=== PATIENT | male | born 1970 | race Asian ===

== ENCOUNTER 2017-01-22 19:27 | Inpatient (IN) | payer BC ==
[~2017-01-22] VITALS: Ht 177.8 cm; Wt 84.2 kg
[~2017-01-22 19:27] MED LIST: ACET325T33 PO; CLON-379 PO; CYCL-319 PO; IBUP-1542 PO; PRED20TA PO
[2017-01-22] MEDS ORDERED: ONDANSETRON 4 MG INJ IV STA (20:14)
[2017-01-22] MEDS ORDERED: ASPIRIN 325 MG TAB PO STA (20:14)
[2017-01-22] MEDS ORDERED: NITROGLYCERIN 2% 1 GM OINT PKT TD STA (20:14)
[2017-01-22] MEDS ORDERED: morphine 4 MG/ML VIAL IV STA (20:14)
[2017-01-22 20:32] LABS: ADD SCAN DIFF NO
[2017-01-22 20:34] LABS: BASOPHILS % 0.7 % (0.0-2.0); EOSINOPHILS # 0.5 10^3/ul (0.0-0.5); EOSINOPHILS % 8.3 % (0.0-7.0); HEMATOCRIT 42.4 % (42.0-52.0); HEMOGLOBIN 13.9 g/dl (14.0-18.0); LYMPHOCYTES # 3.1 10^3/ul (0.8-2.9); LYMPHOCYTES % 51.6 % (15.0-51.0); MEAN CORPUSCULAR HEMOGLOBIN 23.6 pg (29.0-33.0); MEAN CORPUSCULAR HGB CONC 32.8 g/dl (32.0-37.0); MEAN CORPUSCULAR VOLUME 71.9 fl (82.0-101.0); MEAN PLATELET VOLUME 9.7 fl (7.4-10.4); MONOCYTE # 0.4 10^3/ul (0.3-0.9); NEUTROPHIL # 1.9 10^3/ul (1.6-7.5); NEUTROPHILS % 32.2 % (39.0-77.0); PLATELET COUNT 279 10^3/UL (140-415); RED CELL DISTRIBUTION WIDTH 17.3 % (11.5-14.5)
[2017-01-22 20:50] LABS: INR 0.89; PT RATIO 0.9
[2017-01-22 20:51] LABS: ANION GAP 13 (8-16); BLOOD UREA NITROGEN 10 mg/dl (7-20); CALCIUM 8.6 mg/dl (8.4-10.2); CARBON DIOXIDE 27 mmol/L (21-31); CHLORIDE 106 mmol/L (97-110); CREATININE 0.96 mg/dl (0.61-1.24); GLUCOSE 91 mg/dl (70-220); PARTIAL THROMBOPLASTIN TIME 28.5 Sec (25.0-35.0); POTASSIUM 3.6 mmol/L (3.5-5.1); SODIUM 142 mmol/L (135-144)
[2017-01-22 21:05] LABS: TROPONIN-I < 0.012 ng/ml (0.00-0.12)
--- NOTE | 2017-01-22 21:45 | ERA ---
ER Documentation Chief Complaint Date/Time DATE: 01/22/17 TIME: 21:43 Chief Complaint GRADUAL CP DESCRIBED PRESSURE RADIATING TO LEFT NECK AND ARM. HPI 47-year-old male with prior history of myocardial bridge over cardiac vessel who presents to the emergency room with chest pain. He describes gradual onset of chest pain that is pressure-like radiating to his jaw that is now 5 out of 10. No pleuritic pain, no back pain, no fevers chills or cough. ROS All systems reviewed and are negative except as per history of present illness. Medications Home Meds Active Scripts Ibuprofen* (Motrin*) 600 Mg Tab, 600 MG PO Q6, #20 TAB Prov:BILL CASILLAS PA-C 02/14/16 Prednisone* (Prednisone*) 20 Mg Tab, 40 MG PO DAILY for 4 Days, TAB Prov:BILL CASILLAS PA-C 02/14/16 Cyclobenzaprine Hcl* (Cyclobenzaprine Hcl*) 10 Mg Tablet, 10 MG PO TID, #15 TAB Prov:EWELINA BONDS PA-C 02/12/16 Acetaminophen* (Tylenol*) 325 Mg Tablet, 1 TAB PO Q6 Y for PAIN AND OR ELEVATED TEMP, #20 TAB Prov:EWELINA BONDS PA-C 02/12/16 Clonidine Hcl* (Clonidine Hcl*) 0.1 Mg Tab, 0.1 MG PO TID, #30 Prov:DARRON HERNANDEZ 02/03/15 Allergies Allergies: Coded Allergies: No Known Drug Allergy (Verified Allergy, Mild, 02/03/15) PMhx/Soc History of Surgery: Yes (LEFT ARM AND KNEE SX.) Anesthesia Reaction: No Hx Neurological Disorder: No Hx Respiratory Disorders: Yes (BRONCHITIS) Hx Cardiac Disorders: Yes (HTN ) Hx Psychiatric Problems: No Hx Miscellaneous Medical Probl: Yes (high cholesterol) Hx Alcohol Use: No Hx Substance Use: No Hx Tobacco Use: No Smoking Status: Never smoker FmHx Family History: No diabetes Physical Exam Vitals Vital Signs Date Time Temp Pulse Resp B/P Pulse Ox O2 Delivery O2 Flow Rate FiO2 01/22/17 21:26 70 21 130/90 100 Room Air 01/22/17 20:20 85 16 147/93 100 Room Air 01/22/17 19:36 97.1 90 18 166/81 99 Physical Exam General: Well developed, well nourished, no acute distress Head: Normocephalic, atraumatic. Eyes: Pupils equally reactive, EOM intact ENT: Moist mucous membranes Neck: Supple, no lymphadenopathy Respiratory: Lungs clear bilaterally, no distress Cardiovascular: RRR, no murmurs, rubs, or gallops Abdominal: Soft, non-tender, non-distended, no peritoneal signs : Deferred MSK: No edema, no unilateral swelling, 5/5 strength Neurologic: Alert and oriented, moving all extremities, normal speech, no focal weakness, no cerebellar signs Skin: No rash Psych: Normal mood Result Diagram: 01/22/17201901/22/172019 Results 24 hrs Laboratory Tests Test 01/22/17 20:20 White Blood Count 6.010^3/ul Red Blood Count 5.9010^6/ul Hemoglobin 13.9g/dl Hematocrit 42.4% Mean Corpuscular Volume 71.9fl Mean Corpuscular Hemoglobin 23.6pg Mean Corpuscular Hemoglobin Concent 32.8g/dl Red Cell Distribution Width 17.3% Platelet Count 46356^3/UL Mean Platelet Volume 9.7fl Neutrophils % 32.2% Lymphocytes % 51.6% Monocytes % 7.0% Eosinophils % 8.3% Basophils % 0.7% Nucleated Red Blood Cells % 0.0/100WBC Neutrophils # 1.910^3/ul Lymphocytes # 3.110^3/ul Monocytes # 0.410^3/ul Eosinophils # 0.510^3/ul Basophils # 0.010^3/ul Nucleated Red Blood Cells # 0.010^3/ul Prothrombin Time 12.0Sec Prothrombin Time Ratio 0.9 INR International Normalized Ratio 0.89 Activated Partial Thromboplast Time 28.5Sec Sodium Level 142mmol/L Potassium Level 3.6mmol/L Chloride Level 106mmol/L Carbon Dioxide Level 27mmol/L Anion Gap 13 Blood Urea Nitrogen 10mg/dl Creatinine 0.96mg/dl Glucose Level 91mg/dl Calcium Level 8.6mg/dl Troponin I < 0.012ng/ml Current Medications Medications (Trade) Dose Ordered Sig/Gamal Route PRN Reason Start Time Stop Time Status Last Admin Dose Admin Aspirin (Aspirin) 325 mg ONCE STAT PO 01/22/17 20:14 01/22/17 20:15 DC 01/22/17 20:23 Nitroglycerin (Nitroglycerin 2% Oint) 1 inch ONCE STAT TD 01/22/17 20:14 01/22/17 20:15 DC 01/22/17 20:24 Morphine Sulfate (morphine) 4 mg ONCE STAT IV 01/22/17 20:14 01/22/17 20:15 DC 01/22/17 20:24 Ondansetron HCl (Zofran Inj) 4 mg ONCE STAT IV 01/22/17 20:14 01/22/17 20:15 DC 01/22/17 20:23 Procedures/MDM EKG, MONITORS, & DIAGNOSTIC IMAGING: EKG: I reviewed and interpreted a 12-lead EKG. Rhythm: Normal sinus rhythm Ectopy: None Intervals: No abnormalities ST segments: No elevations or depressions T waves: No contiguous inversions Repeat EKG: EKG: I reviewed and interpreted a 12-lead EKG. Rhythm: Normal sinus rhythm Ectopy: None Intervals: No abnormalities ST segments: No elevations or depressions T waves: No contiguous inversions Chest x-ray: I reviewed and interpreted a 1 view of the chest Mediastinum: No enlargement Cardiac silhouette: No cardiomegaly Airspace: Clear lung moyer bilaterally without evidence of pneumothorax Bones: No evidence of fracture LAB INTERPRETATION: Negative troponin MEDICAL DECISION MAKING: The patient's history, physical exam and clinical presentation is concerning for possible cardiogenic etiology and acute coronary syndrome. Based on the patient's clinical exam and history and risk factors, I have a much lower clinical concern for pulmonary embolism, acute aortic dissection, pneumothorax, pneumonia, cardiac tamponade HEART Score: 3 MACE Rate: 1.7% Shared Decision Making: We had a conversation regarding risk stratification, MACE rate, and the risks, benefits, alternatives of disposition planning options. Disposition planning: Given the patient's structural abnormality I would be concerned for possible cardiac etiology therefore inpatient hospitalization is recommended ER COURSE: Aspirin, nitro, morphine provided. Pain improved. 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 He does not exhibit any migratory pain that would be concerning for dissection. The patient will benefit from inpatient hospitalization. Pain improved currently. I kept the patient and/or family informed of laboratory and diagnostic imaging results throughout the emergency room course. DISPOSITION PLAN: Telemetry admission to rule out acute coronary syndrome CONSULTATION: Accepting care team and consultations: I discussed the current laboratory data, diagnostic imaging and emergency care provided. Admitting team: Dr. Villela Admitting team indication: Insurance directed Departure Diagnosis: Primary Impression: Chest pain Qualified Code: R07.9 - Chest pain, unspecified type Condition: CONNOR Eastman MD Jan 22, 2017 21:45
[2017-01-22] MEDS ORDERED: ONDANSETRON 4 MG INJ IV PRN (22:00)
[2017-01-22] MEDS ORDERED: ACETAMINOPHEN 325 MG TAB PO PRN (22:00)
[2017-01-22 22:15] VITALS: TEMP 97.6
[2017-01-22 22:30] VITALS: BP 140/84; PULSE 67; RESP 18; Ht 177.8 cm; Wt 84.2 kg
[2017-01-22] MEDS ORDERED: ZOLPIDEM 5 MG TAB PO PRN (22:30)
[2017-01-22] MEDS ORDERED: LORAZEPAM 0.5 MG TAB PO PRN (22:30)
[2017-01-22] MEDS ORDERED: NITROGLYCERIN (SL) 0.4 MG TAB SL PRN (22:30)
--- NOTE | 2017-01-22 23:10 | RADRPT ---
PROCEDURE: Chest x-ray CLINICAL INDICATION: Chest pain TECHNIQUE: Chest single view COMPARISON: 02/20/2015 FINDINGS: The heart is normal in size. The pulmonary vessels are normal in caliber. The lungs are clear. Th e costophrenic angles are sharp. The visualized bony thorax is unremarkable. IMPRESSION: No acute cardiopulmonary disease. RPTAT: HH .Wing Moreno MD, Date Time Electronically viewed and signed by .Wing Moreno MD, MD on 01/22/2017 23:10 .W/
[2017-01-22 23:53] VITALS: BP 140/84; RESP 19
[2017-01-23] VITALS (12 sets, daily range): BP systolic 105–131; BP diastolic 51–77; PULSE 67–97; RESP 19–20
[2017-01-23 02:53] LABS: CREATINE KINASE 165 IU/L (23-200)
[2017-01-23 03:10] LABS: CK-MB 1.46 ng/ml (0.0-2.4); TROPONIN-I < 0.012 ng/ml (0.00-0.12)
[2017-01-23 06:57] LABS: ADD SCAN DIFF NO
[2017-01-23 07:05] LABS: BASOPHILS % 0.5 % (0.0-2.0); EOSINOPHILS # 0.5 10^3/ul (0.0-0.5); EOSINOPHILS % 8.3 % (0.0-7.0); HEMATOCRIT 39.3 % (42.0-52.0); HEMOGLOBIN 12.6 g/dl (14.0-18.0); LYMPHOCYTES # 2.4 10^3/ul (0.8-2.9); LYMPHOCYTES % 41.7 % (15.0-51.0); MEAN CORPUSCULAR HEMOGLOBIN 23.1 pg (29.0-33.0); MEAN CORPUSCULAR HGB CONC 32.1 g/dl (32.0-37.0); MEAN CORPUSCULAR VOLUME 72.1 fl (82.0-101.0); MEAN PLATELET VOLUME 9.8 fl (7.4-10.4); MONOCYTE # 0.5 10^3/ul (0.3-0.9); MONOCYTES % 8.5 % (0.0-11.0); NEUTROPHIL # 2.3 10^3/ul (1.6-7.5); NEUTROPHILS % 40.8 % (39.0-77.0); PLATELET COUNT 253 10^3/UL (140-415); RED BLOOD COUNT 5.45 10^6/ul (4.70-6.10); RED CELL DISTRIBUTION WIDTH 17.7 % (11.5-14.5); WHITE BLOOD COUNT 5.6 10^3/ul (4.8-10.8)
[2017-01-23 07:25] LABS: ALANINE AMINOTRANSFERASE 46 IU/L (13-69); ALBUMIN 3.8 g/dl (3.3-4.9); ALBUMIN/GLOBULIN RATIO 1.58; ALKALINE PHOSPHATASE 66 IU/L (42-121); ANION GAP 11 (8-16); ASPARTATE AMINO TRANSFERASE 26 IU/L (15-46); BILIRUBIN,INDIRECT 0.3 mg/dl (0-1.1); BILIRUBIN,TOTAL 0.3 mg/dl (0.2-1.3); BLOOD UREA NITROGEN 13 mg/dl (7-20); CALCIUM 8.6 mg/dl (8.4-10.2); CARBON DIOXIDE 25 mmol/L (21-31); CHLORIDE 109 mmol/L (97-110); CHOL/HDL RATIO 7.8 RATIO; CHOLESTEROL 188 mg/dl (100-200); CREATININE 1.03 mg/dl (0.61-1.24); GLUCOSE 92 mg/dl (70-220); HDL CHOLESTEROL 24 mg/dl (27-67); MAGNESIUM 2.1 mg/dl (1.7-2.5); POTASSIUM 3.8 mmol/L (3.5-5.1); SODIUM 141 mmol/L (135-144); TOTAL PROTEIN 6.2 g/dl (6.1-8.1); TRIGLYCERIDES 443 mg/dl (0-149)
[2017-01-23 07:34] LABS: TROPONIN-I < 0.012 ng/ml (0.00-0.12)
[2017-01-23] MEDS: ASPIRIN 81 MG TAB PO SCH (08:32)
[2017-01-23] MEDS: ENOXAPARIN 40 MG/0.4 ML SYG SC SCH (10:16)
[2017-01-23 10:38] LABS: CREATINE KINASE 143 IU/L (23-200)
[2017-01-23 10:59] LABS: CK-MB 1.17 ng/ml (0.0-2.4); TROPONIN-I < 0.012 ng/ml (0.00-0.12)
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
--- NOTE | 2017-01-23 13:23 | HP ---
DATE OF ADMISSION: 01/22/2017 ADDENDUM EKG was reviewed, which shows mild ST elevation in II, III, aVF and lateral leads. First EKG done o n 01/22, showed nonspecific ST-T wave changes; however, the EKG from the 5th shows ST elevation in I I, III and aVF along with the lateral leads. PLAN: Will discuss the findings with Dr. Kennedy and order an echocardiogram. Dictated By: RO HICKEY MD, SR/KATIE Conf#: [id number] DID#: [id number]
[2017-01-23] MEDS: REGADENOSON 0.4 MG/5 ML SYG ONE ×2 (13:51→14:00)
--- NOTE | 2017-01-23 14:19 | RADRPT ---
Echocardiogram Report Patient Name: MIK CARRANZA Gender: Male Date: 1970 Study Date: 23-Jan-2017 National Business Director: Ghazala Roldan [facility] Location: 503 Ref. Physician: RO HICKEY Quality: Good Procedures: Transthoracic echocardiogram with complete 2D, M-Mode, and doppler examination. Indications: Atypical Chest Pain, EKG changes of ischemia. 2D/M Mode Doppler Measurement Value Normal Ranges Measurement Value Normal Ranges LVIDd 2D 5.0 3.5 - 5.6 cm AV Peak Oniel 1.3 m/sec LVIDs 2D 3.1 2.1 - 4.1 cm AV Peak PG 7.0 mmHg FS 2D 37.6 % LVOT Peak Oniel 1.3 m/sec LVPWd 2D 0.8 0.6 - 1.1 cm LVOT Peak PG 7.0 mmHg IVSd 2D 0.8 0.6 - 1.1 cm MV E Peak Oniel 0.8 m/sec IVS/LVPW 2D 0.9 MV A Peak Oniel 0.6 m/sec AoR Diam 2D 3.1 2.0 - 3.7 cm MV E/A 1.3 LA/Ao 2D 1 0 - 1 MV Decel Time 162 msec EDV 2D 127.0 cm3 MV E/A 1.3 ESV 2D 31.0 cm3 TR Peak Oniel 2.0 m/sec LA Dimen 2D 3.3 2.3 - 4.0 cm TR Peak PG 17.0 mmHg RVSP 20.0 mmHg Findings Left Ventricle: Normal left ventricular systolic function. Normal left ventricular cavity size. Normal left ventricular wall thickness. Ejection fraction is visually estimated at 60 %. Right Ventricle: Normal right ventricular size. Normal right ventricular systolic function. Left Atrium: The left atrium is normal in size. Right Atrium: The right atrium is normal in size. Mitral Valve: Normal appearance and function of the mitral valve with trace physiologic regurgitation. Aortic Valve: Normal appearance of the aortic valve. No significant aortic stenosis or insufficiency. Tricuspid Valve: Normal appearance of the tricuspid valve. Estimated peak PA systolic pressure 20 mmHg. There is trace tricuspid regurgitation. Pulmonic Valve: Normal pulmonic valve appearance. Pericardium: Normal pericardium with no significant pericardial effusion. Aorta: Normal aortic root. IVC: Normal size and normal respiratory collapse consistent with normal right atrial pressure. Conclusions 1.Normal left ventricular systolic function. Normal left ventricular cavity size. Normal left ventricular wall thickness. Ejection fraction is visually estimated at 60 %. 2.Normal appearance and function of the mitral valve with trace physiologic regurgitation. 3.Normal appearance of the tricuspid valve. Estimated peak PA systolic pressure 20 mmHg. There is trace tricuspid regurgitation. Electronically Signed By: Paul Kennedy 23-Jan-2017 14:19:36 -0700 Patient Name: MIK CARRANZA Study Date: 23-Jan-2017 [id number]
--- NOTE | 2017-01-23 14:33 | CONS ---
DATE OF ADMISSION: 01/22/2017 DATE OF CONSULTATION: 01/23/2017 REASON FOR CONSULTATION: Chest pain, assess for acute coronary syndrome. REQUESTING PHYSICIAN: Dr. Hickey. HISTORY OF PRESENT ILLNESS: Mr. Washington is a 47-year-old male with a history of diet-controlled dy slipidemia and labile hypertension. not currently on medications, who initially presented with compl aints of substernal chest pain. Patient states that he was at work and began to have chest pain on the left side of his chest radiating up the left side of his chest and neck, lasting without stoppin g for about 2 hours, described as a stabbing sensation with associated pressure-like component at re st. The patient subsequently presented to the emergency department where upon arrival, temperature 97.1, blood pressure 166/81, pulse 90, respiratory rate 18, saturating 99%. The patient's labs reve aled a white blood cell count of 6.0, hemoglobin 13.9, platelet count 279. Sodium of 142, potassium 3.6, creatinine 0.9, BUN 10. Troponin negative. LDL 75, HDL 24. INR 0.89. The patient underwent a chest x-ray revealing no acute cardiopulmonary abnormalities. The patient's electrocardiogram re vealed normal sinus rhythm, rate of 74, normal axis, normal intervals with nonspecific ST and T-wave abnormalities. Patient subsequently admitted to the floor and since admit to the floor, has had a total of 3 negative troponins, ruling out acute myocardial infarction. LDL 75, HDL 24. The patient denies ongoing chest pain at this time. PAST MEDICAL HISTORY: As above in HPI. MEDICATIONS CURRENTLY IN HOSPITAL: 1. Lipitor 20 mg at bedtime. 2. ____ 1 gram b.i.d. 3. Lovenox 1 subcu daily. 4. Aspirin 81 mg daily. 5. Ativan 0.5 mg q.4 p.r.n. 6. Ambien p.r.n. 7. Sublingual nitroglycerin p.r.n. ALLERGIES: NO KNOWN DRUG ALLERGIES. SOCIAL HISTORY: No tobacco, ETOH or illicit drug use. FAMILY HISTORY: Negative for sudden cardiac or early CAD. REVIEW OF SYSTEMS: As above in HPI. CONSTITUTIONAL: No fevers, chills. PULMONARY: No current shortness of breath. CARDIOVASCULAR: Intermittent chest pain. GASTROINTESTINAL: No vomiting. GENITOURINARY: No hematuria. MUSCULOSKELETAL: Degenerative joint disease. PSYCHIATRIC: The patient denies depression. NEUROLOGIC: No documented history of CVA. PHYSICAL EXAMINATION VITAL SIGNS: Temperature of 98.2, blood pressure 108/65, pulse 68, respiratory rate 20, saturating 98%. GENERAL: The patient is alert, awake, in no acute distress. NECK: JVP approximately 8 to 9 cm water. CHEST: Fair air movement throughout. HEART: Regular rate and rhythm. Normal S1, S2, I/ systolic murmur, nondisplaced PMI. ABDOMEN: Positive bowel sounds, soft. EXTREMITIES: No pitting edema, 1+ pulses bilaterally, posterior tibial. LABORATORY DATA: As above in [facility] with most recently from today, sodium 141, potassium 3.8, creatini ne 1.0, BUN 13, LDL 75, HDL 24. Troponin negative x3. White blood cell count 5.6, hemoglobin 12.6, platelet count of 253. IMAGING STUDIES: As above in HPI. No further imaging studies for my review at this time. ECG: As above in HPI with repeat EKG from today revealing normal sinus rhythm, rate of 63, normal a xis, borderline ____, nonspecific ST-T abnormalities, no significant change. IMPRESSION: 1. Chest pain, assess for acute coronary syndrome with negative troponins x3 at this time. 2. Dyslipidemia. 3. Abnormal electrocardiogram, assess for acute coronary syndrome. 4. Anemia, mild. RECOMMENDATIONS: 1. At this time, would maintain the patient on telemetry monitoring to follow rhythm and rate contr ol closely. 2. Continue the patient's aspirin for prophylaxis against cardiovascular events and continue p.r.n. sublingual nitroglycerin for recurrent episodes of chest pain. Note is to continue patient's fish oil and statin at this time and follow up lipid studies including HDL. 3. Will attempt to schedule stress test for patient today in order to assess for the possibility of ischemia lending to the patient's symptoms of chest pain and subsequent admit to the hospital. Thank you for allowing me to take part in the care of this patient. I will continue to follow very closely with you with further recommendations to be made as the patient progresses through his [facility] clinical. Dictated By: JERMAINE CARR/KATIE Conf#: [id number] DID#: [id number] CC: RO HICKEY MD;*End*
--- NOTE | 2017-01-23 14:47 | CARRPT ---
DATE OF PROCEDURE: 01/23/2017 CARDIOLITE STRESS TEST ELECTROGRAM PORTION REASON FOR STRESS TESTING: Chest pain, assess for ischemia. BASELINE VITAL SIGNS AND ELECTROCARDIOGRAM: Pulse 61, blood pressure 131/75. Electrocardiogram rev eals normal sinus rhythm, rate of 61, normal axis, normal intervals with J-point elevation in inferi or and lateral leads with normal concavity. PROCEDURE: The patient underwent standard Lexiscan infusion protocol over 10 seconds followed by ra diolabeled tracer. The patient's test was stopped due to completion of protocol. Maximal achieved blood pressure during the test 125/71. Maximal achieved heart rate during the test 82. ELECTROCARDIOGRAM FINDINGS: The patient did not develop any new Lexiscan-induced ST or T-wave cline es from baseline abnormalities. No documented PVCs. SYMPTOMS: The patient had no complaints of chest pain or shortness of breath during stress testing. Positive abdominal pain which resolved in recovery. IMPRESSION: 1. No Lexiscan-induced ST or T-wave changes from baseline abnormalities diagnostic of cardiac ische namrata. 2. No complaints of chest pain or shortness of breath during stress testing. 3. No documented premature ventricular contractions during stress testing. 4. Report of nuclear images to follow in separate dictation. Dictated By: JERMAINE CARR/KATIE Conf#: [id number] DID#: [id number] CC: RO HICKEY MD;*EndCC*
--- NOTE | 2017-01-23 15:06 | RADRPT ---
PROCEDURE: Lexiscan myocardial perfusion study CLINICAL INDICATION: 47 -year-old patient complaining of chest pain. TECHNIQUE: Lexiscan 0.4 mg intravenously separate acquisition gated myocardial perfusion SPECT usi ng Tc 99m Myoview 22.8 mCi intravenously at stress and Tc-99m Myoview, 6.9 mCi intravenously at rest was performed using the rest/stress sequence. Poststress Myoview SPECT images were obtained in the supine position. COMPARISON: No prior studies. FINDINGS: Perfusion images reveal mild nonreversible perfusion abnormality in the inferior wall. Lexiscan post stress gated SPECT images demonstrate no wall motion abnormalities. IMPRESSION: 1. No evidence of stress-induced ischemia. 2. No wall motion abnormalities. 3. The left ventricle ejection fraction at stress is 56%. A call report was made to Dr. Kennedy at 03:03 p.m. on January 23, 2017. RPTAT: HH .Mikaela Polanco MD, MD Date Time Electronically viewed and signed by .Mikaela Polanco MD, on 01/23/2017 15:06 .L/
[2017-01-23] MEDS: FISH OIL 1,000 MG CAP PO SCH (20:57)
[2017-01-23] MEDS ORDERED: ATORVASTATIN 20 MG TAB PO SCH (21:00)
[2017-01-24 00:19] VITALS: PULSE 69
[2017-01-24 03:53] VITALS: BP 134/72; RESP 20
[2017-01-24 04:00] VITALS: PULSE 60
[2017-01-24 07:34] VITALS: BP 119/74; RESP 20
[2017-01-24 08:00] VITALS: PULSE 92
[2017-01-24] MEDS ORDERED: NIT4 SL (09:09)
[2017-01-24] MEDS ORDERED: OMEG1CAP55 PO (09:09)
[2017-01-24] MEDS: ASPIRIN 81 MG TAB PO SCH (09:23)
[2017-01-24] MEDS: FISH OIL 1,000 MG CAP PO SCH (09:23)
--- NOTE | 2017-01-24 09:45 | CONS ---
Date/Time of Note Date/Time of Note DATE: 01/24/17 TIME: 09:44 Assessment/Plan Assessment/Plan Additional Assessment/Plan 1. Chest pain, assess for acute coronary syndrome with negative troponins x3 at this time. STRESS TEST 12/24/16 - EF 60%, no ischemia 2. Dyslipidemia - Rx with diet change 3. Abnormal electrocardiogram, assess for acute coronary syndrome- r/o OK, doubt ischemia 4. Anemia, mild- no blood tx needed Consultation Date/Type/Reason Admit Date/Time Jan 22, 2017 at 21:43 Initial Consult Date 24 HR Interval Summary Free Text/Dictation NO acute events - negative stress test - no intervention planned ROS: No fever, no chills, no nausea, no vomiting, no diarrhea/constipation No recent weight changes No chest pain, no PND, no orthopnea No dizziness, blurred vision No thirst, no heat or cold intolerance Exam/Review of Systems Vital Signs Vitals Vital Signs Date Time Temp Pulse Resp B/P Pulse Ox O2 Delivery O2 Flow Rate FiO2 01/24/17 08:00 92 01/24/17 07:34 97.7 20 119/74 98 01/22/17 22:30 Room Air Intake and Output 01/23/17 01/23/17 01/24/17 15:00 23:00 07:00 Intake Total 750 ml 120 ml Balance 750 ml 120 ml Exam General: WN/WD/NAD, AOx 3 HEENT: Unicetric/atraumatic/EOMI (follow commands) NECK: JVD elevated, no thyromegaly Lymph: no lymphadenopathy HEART: regular with no S3, II/ systolic murmur at apex LUNGS: Coarse sounds ABD: soft, NT, ND, +BS : Intact Neuro: non focal SKIN: chronic changes EXT: trace edema Results Result Diagram: 01/23/17 0540 01/23/17 0540 Results 24 hrs Laboratory Tests Test 01/23/17 09:51 Creatine Kinase 143 Creatine Kinase Index 0.8 Creatinine Kinase MB (Mass) 1.17 Troponin I < 0.012 Medications Medications Current Medications Aspirin (Aspirin) 81 mg DAILY PO Last administered on 01/24/17t 09:23; Admin Dose 81 MG; Start 01/23/17 at 09:00 Nitroglycerin (Nitroglycerin (Sl Tab) 0.4 Mg) 1 tab Q5M PRN SL ANGINA; Start at 22:30 Fish Oil (Fish Oil) 1,000 mg BID PO Last administered on 01/24/17 09:23; Admin Dose 1,000 MG; Start 01/23/17 at 21:00 YVONNE SMITH MD Jan 24, 2017 09:45
[2017-01-24] MEDS: ENOXAPARIN 40 MG/0.4 ML SYG SC SCH (09:49)
--- NOTE | 2017-01-24 13:22 | DS ---
DATE OF ADMISSION: 01/22/2017 DATE OF DISCHARGE: 01/24/2017 FINAL DIAGNOSES: 1. Atypical chest pain, acute myocardial infarction ruled out, negative Lexiscan. 2. Labile hypertension. 3. Mixed dyslipidemia. HOSPITAL COURSE: 1. The patient is a 47-year-old gentleman with history of dyslipidemia and labile hypertensio n, presenting with substernal chest pain radiating to the left side of the chest and neck, lasting f or about 2 hours. He was evaluated in the emergency room and was admitted to telemetry floor. Initial EKG showed nonspecific ST-T changes and had 3 negative troponins following EKG which showed T-wave abnormalities as well. The patient was seen by Dr. Kennedy and an echocardiogram was perform ed which showed normal LV function, trace physiological mitral regurgitation, and no evidence of per icardial effusion. The patient underwent Lexiscan which was negative and the patient was asymptomat ic, ambulating well and he was discharged home in much improved condition to continue Lovaza 2 grams p.o. b.i.d., aspirin 81 mg p.o. daily. The patient has stopped taking the statin. Will add statin s as outpatient after repeating his labs. Dictated By: RO HICKEY MD, SR/KATIE Conf#: [id number] DID#: [id number]
--- NOTE | 2017-01-25 17:46 | RADRPT ---
Vent Rate: 63 bpm RR Interval: 0 msec RI Interval: 172 msec QRS Duration: 106 msec QT Interval: 404 msec QTC Interval: 413 msec P-R-T [place]: 59 - 66 - 62 degrees Normal sinus rhythm Normal ECG Electronically Signed By: Carlton Lobo [id number]
== END 2017-01-24 11:00 | disposition home or self-care (01) | DRG 313 ==
LOC: E/R 19:27 → TEL 21:43
PROVIDERS: ADMIT Internal Medicine; ATTEND Internal Medicine
PROC: C22G1ZZ Tomographic (Tomo) Nuclear Medicine Imaging of Myocardium using Technetium 99m (Tc-99m) (ICD-10-PCS; principal; 2017-01-23)
PROC: 4A02XM4 Measurement of Cardiac Total Activity, External Approach (ICD-10-PCS; 2017-01-23)
PROC: 3E033HZ Introduction of Radioactive Substance into Peripheral Vein, Percutaneous Approach (ICD-10-PCS; 2017-01-23)
DX: R07.89 Other chest pain (principal); I10 Essential (primary) hypertension; E78.2 Mixed hyperlipidemia; D64.9 Anemia, unspecified; R94.31 Abnormal electrocardiogram [ECG] [EKG]
CPT/HCPCS: 36415; 71010; 78452; 80048; 80053; 80061; 82550; 82553; 83735; 84484; 85025; 85610; 85730; 86140; 93005; 93017; 93306; 96374; 96375; A9500; A9505; J1650; J2270; J2405; J2785

== ENCOUNTER → 2017-03-03 | Outpatient (CLI) | payer BC ==
[~2017-03-03] MED LIST changes: -ACET325T33 PO; -CLON-379 PO; -CYCL-319 PO; -IBUP-1542 PO; +NIT4 SL; +OMEG1CAP55 PO; -PRED20TA PO
[2017-03-03 10:29] LABS: ADD SCAN DIFF NO
[2017-03-03 10:48] LABS: BASOPHILS % 0.8 % (0.0-2.0); EOSINOPHILS # 0.3 10^3/ul (0.0-0.5); EOSINOPHILS % 5.8 % (0.0-7.0); HEMATOCRIT 43.2 % (42.0-52.0); HEMOGLOBIN 13.9 g/dl (14.0-18.0); LYMPHOCYTES # 2.6 10^3/ul (0.8-2.9); LYMPHOCYTES % 49.1 % (15.0-51.0); MEAN CORPUSCULAR HEMOGLOBIN 23.8 pg (29.0-33.0); MEAN CORPUSCULAR HGB CONC 32.2 g/dl (32.0-37.0); MEAN PLATELET VOLUME 10.5 fl (7.4-10.4); MONOCYTE # 0.4 10^3/ul (0.3-0.9); MONOCYTES % 7.9 % (0.0-11.0); NEUTROPHIL # 1.9 10^3/ul (1.6-7.5); NEUTROPHILS % 36.2 % (39.0-77.0); PLATELET COUNT 262 10^3/UL (140-415); RED BLOOD COUNT 5.84 10^6/ul (4.70-6.10); RED CELL DISTRIBUTION WIDTH 17.6 % (11.5-14.5); WHITE BLOOD COUNT 5.3 10^3/ul (4.8-10.8)
[2017-03-03 11:08] LABS: ALBUMIN 4.5 g/dl (3.3-4.9); ALBUMIN/GLOBULIN RATIO 1.66; BILIRUBIN,INDIRECT 0.3 mg/dl (0-1.1); BILIRUBIN,TOTAL 0.3 mg/dl (0.2-1.3); CHOL/HDL RATIO 6.7 RATIO; CREATININE 1.05 mg/dl (0.61-1.24); TOTAL PROTEIN 7.2 g/dl (6.1-8.1)
== END | disposition home or self-care (01) ==
LOC: LAB 09:04
PROVIDERS: ATTEND Internal Medicine
DX: E78.5 Hyperlipidemia, unspecified (principal); R07.89 Other chest pain; R73.03 Prediabetes
CPT/HCPCS: 80053; 80061; 83036; 85025; 86140

== ENCOUNTER → 2017-09-21 | Outpatient (CLI) | END | disposition home or self-care (01) ==

== ENCOUNTER → 2018-06-08 | Outpatient (CLI) | END | disposition home or self-care (01) ==

== ENCOUNTER 2018-11-25 19:12 | Emergency (ER) | payer BC ==
[~2018-11-25] VITALS: Ht 176.5 cm; Wt 83.0 kg
[~2018-11-25 19:12] MED LIST changes: -NIT4 SL; +NITR0.4T39 SL; +OMEG-157 PO; -OMEG1CAP55 PO
[2018-11-25 19:13] VITALS: BP 154/102; PULSE 79; RESP 19; Ht 176.5 cm; Wt 83.0 kg
[2018-11-25] MEDS ORDERED: IBUP-1542 PO (20:34)
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
== END 2018-11-25 20:48 | disposition home or self-care (01) ==
LOC: FTE 19:12
DX: M79.604 Pain in right leg (principal); I10 Essential (primary) hypertension
CPT/HCPCS: 99282

== ENCOUNTER → 2019-02-14 | Outpatient (CLI) | payer BC ==
[~2019-02-14] MED LIST changes: +IBUP-1542 PO
--- NOTE | 2019-02-14 19:26 | RADRPT ---
Echocardiogram Report Patient Name: MIK CARRANZAPatient ID: [id number] : 1970 (49y 1m)Study Date: 02/14/2019 1:42:51 PM Gender: MAccession #: [id number] Tech: Pardeep Porras [facility] Location: EKG Ref.Physician: JERMAINE KENNEDY Height(Cm): BSA: Weight(Kg): Quality: AdequateOrder Physician: JERMAINE KENNEDY Account #: Procedures: Echocardiographic Report: Transthoracic echocardiogram with complete 2D, M-Mode, and doppler examination. Indications: Chest Pain. Measurements: 2D/M Mode Doppler Measurement Value Normal Range Measurement Value Normal Range LVIDd 2D 4.2 [ 4.2 - 5.8 ] cm AV Peak Oniel 1.4 [ 100.0 - 170.0 ] cm/sec LVIDs 2D 2.7 [ 2.5 - 4.0 ] cm AV Peak PG 7.0 [ 2.0 - 9.0 ] mmHg LVPWd 2D 1.1 [ 0.6 - 1.0 ] cm LVOT Peak Oniel 1.0 [ 70.0 - 110.0 ] cm/sec IVSd 2D 1.2 [ 0.6 - 1.0 ] cm LVOT Peak PG 4.0 [ 2.0 - 6.0 ] mmHg AoR Diam 2D 3.0 [ 2.6 - 3.4 ] cm MV E Peak Oniel 0.7 [ 60.0 - 130.0 ] cm/sec EDV 2D 79.9 [ 62.0 - 150.0 ] ml MV A Peak Oniel 0.6 [ 100.0 - 120.0 ] cm/sec ESV 2D 26.0 [ 21.0 - 61.0 ] ml MV E/A 1.3 [ 0.8 - 1.5 ] ratio EF 2D 67.5 [ 52.0 - 72.0 ] percent MV Decel Time 187 [ 104 - 258 ] msec LA Dimen 2D 3.3 [ 3.0 - 4.0 ] cm Lat E` Oniel 0.1 [ 10.0 - 15.0 ] cm/sec Lateral E/E` 6.1 [ 1.0 - 2.0 ] ratio Med E` Oniel 0.1 cm/sec MV E/A 1.3 [ 0.8 - 1.5 ] ratio TR Peak Oniel 1.8 [ 100.0 - 280.0 ] cm/sec TR Peak PG 13.0 mmHg RVSP 16.0 [ 10.0 - 36.0 ] mmHg Findings: Left Ventricle: Normal left ventricular systolic function. Normal left ventricular cavity size. Mild concentric left ventricular hypertrophy. Ejection fraction is visually estimated at 60 %. Tissue Doppler/Mitral Doppler indices are within normal limits. Right Ventricle: Normal right ventricular size. Normal right ventricular systolic function. Left Atrium: The left atrium is normal in size. Right Atrium: The right atrium is normal in size. Mitral Valve: Mild mitral leaflet calcification. Mild mitral annular calcification. Trace mitral regurgitation. Aortic Valve: No significant aortic stenosis or insufficiency. Aortic cusps appear mildly calcified. Tricuspid Valve: Normal appearance of the tricuspid valve. The estimated Peak RVSP is 16 mmHg. There is trace tricuspid regurgitation. Pericardium: Normal pericardium with no significant pericardial effusion. Aorta: Normal aortic root. IVC: Normal size and normal respiratory collapse consistent with normal right atrial pressure. Conclusions: Normal left ventricular systolic function. Normal left ventricular cavity size. Ejection fraction is visually estimated at 55-60 %. Borderline concentric Left ventricular Hypertyrophy. Tissue Doppler/Mitral Doppler indices are within normal limits. Mild mitral leaflet calcification. Mild mitral annular calcification. Trace mitral regurgitation. Normal appearance of the tricuspid valve. The estimated Peak RVSP is 16 mmHg. There is trace tricuspid regurgitation. Electronically Signed By: Jermaine Kennedy 2019-02-14 19:25:52 PDT
== END | disposition home or self-care (01) ==
LOC: EKG 13:19
PROVIDERS: ATTEND Internal Medicine
DX: R07.9 Chest pain, unspecified (principal)
CPT/HCPCS: 93306

== ENCOUNTER → 2019-03-07 | Outpatient (CLI) | payer BC | END | disposition home or self-care (01) | LOC: LAB 08:38 | PROVIDERS: ATTEND Internal Medicine | DX: R73.03 Prediabetes (principal); E78.5 Hyperlipidemia, unspecified | CPT/HCPCS: 80053; 80061; 83036; 84153; 84154; 85025 ==

== ENCOUNTER → 2019-06-19 | Outpatient (CLI) | payer BC | END | disposition home or self-care (01) | LOC: LAB 11:28 | PROVIDERS: ATTEND Internal Medicine | DX: S89.81XD Other specified injuries of right lower leg, subsequent encounter (principal); X58.XXXD Exposure to other specified factors, subsequent encounter; D64.9 Anemia, unspecified; R07.89 Other chest pain | CPT/HCPCS: 80048; 85025; 85610; 85730; 93005 ==